=== PATIENT | female | born 1980 | race African-American/Black ===

== ENCOUNTER 2018-12-30 17:00 | Outpatient (CLI) | payer BC | END 2018-12-30 17:01 | disposition home or self-care (01) | LOC: SLEEPLAB 17:00 | PROVIDERS: ATTEND Physician Assistant | DX: G47.33 Obstructive sleep apnea (adult) (pediatric) (principal); R53.83 Other fatigue; E66.9 Obesity, unspecified; F41.9 Anxiety disorder, unspecified | CPT/HCPCS: 95806 ==

== ENCOUNTER 2019-04-27 16:00 | Outpatient (CLI) | payer BC ==
--- NOTE | 2019-04-27 16:14 | RAD ---
Exam: Left wrist 2 views: HISTORY: Left wrist pain following a fall and injury 4 days ago COMPARISON: None FINDINGS: No evidence for fracture, dislocation, or other significant acute osseous abnormality. IMPRESSION: No significant acute process. The patient has persistent or worsening pain, follow-up additional imaging with MRI is suggested.
== END 2019-04-27 16:01 | disposition home or self-care (01) ==
LOC: BICRAD 16:00
PROVIDERS: ATTEND Physician Assistant
DX: M25.532 Pain in left wrist (principal)

== ENCOUNTER 2022-09-29 08:14 | Outpatient (CLI) | payer BC | END 2022-09-29 08:15 | disposition home or self-care (01) | LOC: BICMAMMO 08:14 | PROVIDERS: ATTEND Physician Assistant | DX: Z12.31 Encounter for screening mammogram for malignant neoplasm of breast (principal) | CPT/HCPCS: 77063; 77067 ==